=== PATIENT | male | born 1985 | race Caucasian/White ===

== ENCOUNTER 2024-04-12 06:04 | Emergency (ER) | payer BC ==
[2024-04-12] MEDS: Ketorolac 30 MG/ML SDV IM ONE (06:52)
== END 2024-04-12 07:47 | disposition home or self-care (01) ==
LOC: LB.ED 06:04
DX: S83.91XA Sprain of unspecified site of right knee, initial encounter (principal); I10 Essential (primary) hypertension; Z88.0 Allergy status to penicillin; Z79.899 Other long term (current) drug therapy; W00.0XXA Fall on same level due to ice and snow, initial encounter
CPT/HCPCS: 96372; 99283; J1885